=== PATIENT | male | born 1945 | race Caucasian/White ===

== ENCOUNTER 2021-10-26 07:28 | Day surgery (SDC) | payer MEDICARE, OTHER ==
[~2021-10-26] VITALS: Ht 165.1 cm; Wt 92.0 kg
[~2021-10-26 07:28] MED LIST: ASPIR 8181 MG PO; CIPROFLOXACIN500 MG PO; METRONIDAZOLE250 MG PO; MOTRIN IB200 MG PO; OXYCODON-ACETA1 EAC2 PO; TAMSULOSIN HCL0.4 MG PO
--- NOTE | 2021-10-26 08:00 | NUR ---
RT COLLECTED RAPID COVID 19 SWAB AT THIS TIME WITH NO COMPLICATIONS.
--- NOTE | 2021-10-26 10:18 | NUR ---
10/26/21 1018 Deyanira Vargas 1013-PATIENT ARRIVED TO PACU AWAKE ON 2L NC RR EVEN. IVF INFUSING. PATIENT DENIES PAIN OR NAUSEA. ENCOURAGED TO PASS GAS. HOB ELEVATED.
--- NOTE | 2021-10-26 16:11 | OR ---
[facility] [address] [place], [place] [address] Signed DATE OF OPERATION: 10/26/2021 SURGEON: Angelita Guerra MD PREOPERATIVE DIAGNOSES: 1. Vague upper abdominal symptoms without associated dysphagia. 2. Abdominal pain, diffuse. 3. History of polyp of colon. POSTOPERATIVE DIAGNOSES: 1. Small hiatal hernia without obvious esophagitis. 2. Diverticular changes sigmoid and mild proctitis. PROCEDURES: 1. Esophagogastroduodenoscopy with biopsy. 2. Total colonoscopy to cecum with biopsy of rectum. ANESTHESIA: Intravenous sedation; fentanyl 100 mcg and Versed 4 mg total. INDICATION: This 76-year-old white man is from [place], [place]. He has previously seen Dr. Rosey Ordaz and in more recent months, LISA Serrano. He has vague abdominal pain, not typical of biliary disease and some occasions of gastroesophageal reflux. He was noted to have polyps in the past as well. He has been recommended to undergo upper endoscopy and colonoscopy to better characterize the problem. He understands the risk of bleeding, infection, and perforation related to upper endoscopy and colonoscopy and wished to proceed. FINDINGS: Upper endoscopy showed a small hiatal hernia but no significant esophagitis. There was edematous change of the duodenum, but no sign of ulceration of the stomach or elsewhere. On colonoscopy, the prep was good. Complete colonoscopy was undertaken of the cecum. He had diverticula of the sigmoid and left colon and mild proctitis, but no polyps or cancer or colitis. DESCRIPTION OF PROCEDURE: The patient was brought to the endoscopy suite and placed in the lateral decubitus position, given intravenous sedation with all due care given his advanced age and prior Electronically Signed By: ANGELITA GUERRA MD 10/26/21 1611 PATIENT NAME: ENID SORIANO OPERATIVE REPORT DATE OF : 47 REPORT #: [id number] PHYSICIAN: ANGELITA GUERRA MD PCP: JHONNY PETIT NP REPORT IS CONFIDENTIAL AND NOT TO BE RELEASED WITHOUT AUTHORIZATION [facility] [address] [place], [place] [address] Signed reported "sensitivity" to sedation. Lidocaine hypopharyngeal anesthesia had been administered already. Under full cardiopulmonary monitoring, intravenous sedation was induced and an Olympus video upper endoscope was passed in the hypopharynx after placement of a bite block. Vocal cords appeared normal. Scope was advanced to the esophagus, throughout its length it appeared normal. There was no Delarosa's epithelium or stricture. The scope was advanced to the stomach, which was insufflated with air. Rugal folds were normal. Antrum was normal as was the pylorus. The scope was passed through the pylorus and into the duodenum. There did appear to be some edematous changes of the duodenum, but nothing particularly otherwise. Biopsies were obtained. The scope was withdrawn and biopsy was then taken of the antrum for both CYNTHIA and pathologic testing. Rugal folds appeared normal. The scope was retroflexed and withdrawn and a small hiatal hernia was noted as well. The scope was straightened and withdrawn to the distal esophagus where biopsies were obtained in the mid esophagus as well. The scope was removed. Plans were then made for colonoscopy. Additional sedation was given. Digital rectal examination performed and was normal. An Olympus video colonoscope was passed in the rectum and manipulated throughout the colon noting numerous diverticula of the sigmoid and left colon ultimately advancing the scope to the cecum. The ileocecal valve and appendiceal orifice were normal. Scope was withdrawn from that point and examination throughout showed no sign of polyps, only diverticula and in the rectum mild proctitis, for which biopsy was obtained. Retroflexed view was similarly notable. The scope was removed and the patient taken to the recovery room in good condition. CONCLUDING DIAGNOSES: 1. Small hiatal hernia without esophagitis, mild duodenal inflammation. 2. Diverticulosis of colon, mild proctitis. PLAN: Consideration will be made for an ultrasound of the gallbladder as his symptoms are not completely atypical for it. MD MADHU Kaye/MODL /[id number] Electronically Signed By: ANGELITA GUERRA MD 10/26/21 1611 PATIENT NAME: ENID SORIANO OPERATIVE REPORT DATE OF : 47 REPORT #: [id number] PHYSICIAN: ANGELITA GUERRA MD PCP: JHONNY PETIT NP REPORT IS CONFIDENTIAL AND NOT TO BE RELEASED WITHOUT AUTHORIZATION [facility] [address] [facility] [place], [place] [address] Signed cc: MD Jhonny Watts NP Copies: ROSEY ORDAZ MD, JENNIFER NP ~ Electronically Signed By: ANGELITA GUERRA MD 10/26/21 1611 PATIENT NAME: ENID SORIANO Caleb OPERATIVE REPORT DATE OF : 47 REPORT #: [id number] PHYSICIAN: ANGELITA GUERRA MD PCP: JHONNY PETIT NP REPORT IS CONFIDENTIAL AND NOT TO BE RELEASED WITHOUT AUTHORIZATION
--- NOTE | 2021-10-30 14:15 | PATH ---
[facility] [address] [place], [place] [address] Signed SPECIMEN(S): A DUODENAL BIOPSY SPECIMEN(S): B ANTRUM BIOPSY SPECIMEN(S): C DISTAL ESOPHAGUS BIOPSY SPECIMEN(S): D MID ESOPHAGUS BIOPSY SPECIMEN(S): E RECTAL BIOPSY SPECIMEN SOURCE: A. DUODENAL BIOPSY B. ANTRUM BIOPSY C. DISTAL ESOPHAGUS BIOPSY D. MID ESOPHAGUS BIOPSY E. RECTAL BIOPSY CLINICAL HISTORY: Hiatal hernia; mild esophagitis; diverticulosis; mild proctitis FINAL PATHOLOGIC DIAGNOSIS: A. Duodenal biopsy: - Duodenal mucosa with mild reactive features and slight villous attenuation. - Negative for increased epithelial lymphocytes within the epithelium. B. Antrum biopsy: - Benign gastric mucosa with slight chronic inflammation. - Negative for evidence of Helicobacter organisms on routine HE-stained sections. C. Distal esophagus biopsy: - Benign esophageal mucosa with reactive epithelial features, negative for significantly increased epithelial eosinophils. - Negative for glandular mucosa. D. Mid esophagus biopsy: - Benign esophageal mucosa, negative for increased epithelial eosinophils. E. Rectal biopsy: - Benign colonic mucosa with focal slight polypoid features, negative for dysplasia. - Negative for pathologic inflammation. JVR:[facility]:[id number] MICROSCOPIC EXAMINATION: Histologic sections of all submitted blocks are examined by light microscopy. These findings, together with the gross examination, support the pathologic diagnosis. PATIENT NAME: ENID SORIANO PATHOLOGY DATE OF : [birth year] REPORT #: [id number] PHYSICIAN: [facility] PCP: JHONNY PETIT NP REPORT IS CONFIDENTIAL AND NOT TO BE RELEASED WITHOUT AUTHORIZATION [facility] [address] [place], [place] [address] Signed GROSS DESCRIPTION: Five specimens are received in five containers, labeled "Wallender, Anshu." A. The specimen, labeled " Wallender, Anshu, biopsy duodenum," is received in formalin and consists of two mcmullen soft tissue fragments that measure 0.3 and 0.4 cm in greatest dimension. The specimen is entirely submitted in cassette (A1). B. The specimen, labeled " Wallender, Anshu, biopsy antrum," is received in formalin and consists of two mcmullen soft tissue fragments that measure each is 0.4 cm in greatest dimension. The specimen is entirely submitted in cassette (B1). C. The specimen, labeled " Wallender, Anshu, biopsy of distal esophagus," is received in formalin and consists of two white-mcmullen soft tissue fragments that measure 0.3 and 0.6 cm in greatest dimension. The specimen is entirely submitted in cassette (C1). D. The specimen, labeled " Wallender, Anshu, biopsy mid esophagus," is received in formalin and consists of one white-mcmullen soft tissue fragment that measures 0.7 cm in greatest dimension. The specimen is entirely submitted in cassette (D1). E. The specimen, labeled " Wallender, Anshu, biopsy rectum," is received in formalin and consists of three mcmullen soft tissue fragments that measure 0.2 to 0.3 cm in greatest dimension. The specimen is entirely submitted in cassette (E1). FB (under the direct supervision of a pathologist) The Gross Description was prepared using a voice recognition system. The report was reviewed for accuracy; however, sound-alike word errors, addition and/or deletions may occur. If there is any question about this report, please contact Client Services. PERFORMING LABORATORY: The technical component was performed by [employer] [facility], [address] [place] [id number] (CLIA# [id number]). The professional interpretation was performed by [facility], [facility], [address] [place] [address] (CLIA#: [id number]). Diagnostician: Quentin Luevano MD Pathologist Electronically Signed 10/30/2021 PATIENT NAME: ENID SORIANO PATHOLOGY DATE OF : 47 REPORT #: [id number] PHYSICIAN: ZAHRA PHAN PCP: JHONNY PETIT NP REPORT IS CONFIDENTIAL AND NOT TO BE RELEASED WITHOUT AUTHORIZATION
== END 2021-10-26 11:00 | disposition home or self-care (01) ==
LOC: OPS 07:28 → DS 07:28 → OPS 07:37 → DS 09:45 → OPS 11:00
PROVIDERS: ATTEND Surgery
PROC: 0DB98ZX Excision of Duodenum, Via Natural or Artificial Opening Endoscopic, Diagnostic (ICD-10-PCS; principal; 2021-10-26 09:00)
PROC: 0DBE8ZX Excision of Large Intestine, Via Natural or Artificial Opening Endoscopic, Diagnostic (ICD-10-PCS; 2021-10-26 09:00)
DX: K29.50 Unspecified chronic gastritis without bleeding (principal); K44.9 Diaphragmatic hernia without obstruction or gangrene; K62.89 Other specified diseases of anus and rectum; K20.90 Esophagitis, unspecified without bleeding; K57.30 Diverticulosis of large intestine without perforation or abscess without bleeding; Z86.010 Personal history of colon polyps; R26.89 Other abnormalities of gait and mobility; Z90.49 Acquired absence of other specified parts of digestive tract; G47.30 Sleep apnea, unspecified; J45.909 Unspecified asthma, uncomplicated; Z88.1 Allergy status to other antibiotic agents; Z88.8 Allergy status to other drugs, medicaments and biological substances
CPT/HCPCS: 87502; 99153; C9803; G0500; J2250; J3010; J7121; U0003